=== PATIENT | male | born 1995 | race African-American/Black ===

== ENCOUNTER 2025-10-05 20:12 | Emergency (ER) | payer SELFPAY ==
[~2025-10-05] VITALS: Ht 177.8 cm; Wt 72.5 kg
[2025-10-05 21:08] VITALS: O2SAT 98
[2025-10-05 21:49] LABS: COLOR URINE YELLOW (YELLOW); GLUCOSE URINE NEGATIVE (NEGATIVE); KETONES URINE NEGATIVE (NEGATIVE); LEUKOCYTE ESTERASE URINE NEGATIVE (NEGATIVE); NITRITE URINE NEGATIVE (NEGATIVE); OCCULT BLOOD URINE 1+ (NEGATIVE); PH URINE 6.5 (4.5-8.0); PROTEIN URINE NEGATIVE (NEGATIVE); SPECIFIC GRAVITY URINE 1.031 (1.005-1.030); UROBILINOGEN URINE 1.0 E.U./dL (0.2-1.0)
[2025-10-05 22:09] LABS: CLARITY URINE SL HAZY (CLEAR)
[2025-10-05 22:10] LABS: BACTERIA URINE NONE SEEN; SQUAMOUS EPITHELIAL CELL URINE RARE /lpf (RARE/1+); WBC URINE 0-2 /hpf (0-2)
[2025-10-05 22:21] LABS: BASOPHILS % 1.0 % (0.0-2.0); EOSINOPHILS % 2.5 % (0.0-5.0); HEMATOCRIT. 45.8 % (42.0-52.0); HEMOGLOBIN. 15.2 g/dL (14.0-18.0); LYMPHOCYTES % 30.3 % (20.0-50.0); MEAN PLATELET VOLUME 8.1 fl (7.4-10.4); MONOCYTES % 7.4 % (2.0-8.0); NEUTROPHILS % 58.8 % (40.0-76.0); PLATELET 298 x1000/uL (130-400); RED BLOOD CELL COUNT 5.24 mill/uL (4.7-6.1); RED CELL DISTRIBUTION WIDTH 12.8 % (11.6-14.6)
[2025-10-05] MEDS: DICYCLOMINE HCL 10MG CAPSULE PO ONE (22:48)
[2025-10-05] MEDS: KETOROLAC 30MG/ML VIAL IM ONE (22:48)
[2025-10-05] MEDS: FAMOTIDINE 20MG TABLET PO ONE (22:49)
[2025-10-05] MEDS: ONDANSETRON 4MG ODT PO ONE (22:49)
[2025-10-05 22:58] LABS: CREATININE 1.1 mg/dL (0.6-1.3)
[2025-10-05 22:59] LABS: PROTEIN TOTAL 7.4 g/dL (6.0-8.3); UREA NITROGEN BLOOD 13 mg/dL (9-23)
[2025-10-05 23:00] LABS: ASPARTATE AMINOTRANSFERASE 21 IU/L (<34)
[2025-10-05 23:01] LABS: BILIRUBIN DIRECT < 0.1 mg/dL (<=3.0); BILIRUBIN TOTAL 0.4 mg/dL (0.1-1.0)
[2025-10-05 23:13] LABS: ETHANOL BLOOD < 10 mg/dL (<10)
[2025-10-05 23:30] VITALS: BP 126/85; PULSE 74; RESP 18; TEMP 36.7; O2SAT 98
== END 2025-10-05 23:31 | disposition home or self-care (01) ==
LOC: ER 20:12
DX: K52.9 Noninfective gastroenteritis and colitis, unspecified (principal)
CPT/HCPCS: 80076; 80048; 81003; 80320; 83690; 85025; 36415; 96372; 99284; Q0162; J1885; G0480